=== PATIENT | male | born 1985 | race Caucasian/White ===

== ENCOUNTER → 2016-12-23 | Outpatient (CLI) | payer MEDICARE, OTHER ==
--- NOTE | 2016-12-23 11:34 | XR ---
EXAMINATION TYPE: XR abdomen complete w decub DATE OF EXAM: 12/23/2016 11:27 AM COMPARISON: NONE HISTORY: Chronic upper quadrant pain TECHNIQUE: Supine, upright, and left side down lateral decubitus views of the abdomen are obtained. FINDINGS: Slight curvature of the spine. Bowel gas pattern nonspecific. Calcifications in pelvis are nonspecifi c. Osseous structures appear intact. Lung bases are clear. IMPRESSION: Nonspecific abdomen.
== END ==
LOC: RADXRMAIN 10:41
PROVIDERS: ATTEND Nurse Practitioner
DX: R10.0 Acute abdomen (principal)
CPT/HCPCS: 74020